=== PATIENT | male | born 1950 | race Caucasian/White ===

== ENCOUNTER 2021-10-21 11:14 | Emergency (ER) | payer MEDICARE, OTHER ==
[~2021-10-21] VITALS: Ht 190.5 cm; Wt 122.5 kg
[~2021-10-21 11:14] MED LIST: AMLODIPINE5 MG PO; ATENOLOL25 MG PO; PERCOCET 325 MG1 TA2 PO
[2021-10-21] MEDS ORDERED: FLOMAX0.4 MG PO (11:47)
[2021-10-21] MEDS ORDERED: HYDR12.5C PO (11:47)
[2021-10-21 12:25] LABS: BASO # 0.1 10*3/uL (0.0-0.1); BASO % 1.3 % (0.0-1.0); EOS # 0.4 10*3/uL (0.0-0.4); EOS % 4.7 % (1.0-4.0); HEMATOCRIT 50.4 % (42.0-52.0); LYMPH # 1.8 10*3/uL (1.3-4.4); LYMPH % 19.5 % (27.0-41.0); MEAN CORPUSCULAR HGB 31.6 pg (27.0-31.0); MEAN CORPUSCULAR HGB CONC 32.9 g/dl (33.0-37.0); MEAN PLATELET VOLUME 10.4 fl (9.6-12.3); MONO # 0.7 10*3/uL (0.1-1.0); MONO % 7.6 % (3.0-9.0); NEUT # 6.1 10*3/uL (2.3-7.9); NEUT % 66.7 % (47.0-73.0); PLATELET COUNT AUTOMATED 191 10*3/uL (130-400); RED BLOOD COUNT 5.25 10*6/uL (4.50-5.90); RED CELL DISTRI WIDTH 13.1 % (0-14.5); WHITE BLOOD COUNT 9.1 10*3/uL (4.8-10.8)
[2021-10-21 12:42] LABS: ALKALINE PHOSPHATASE 90 U/L (45-117); BUN 13 mg/dl (7-24); CHLORIDE 105 mmol/L (98-107); CREATININE 1.07 mg/dL (0.70-1.30); POTASSIUM 5.1 mmol/L (3.5-5.1); SGOT/AST 54 IU/L (3-35); SGPT/ALT 85 U/L (12-78); SODIUM 137 mmol/L (136-145); TOTAL PROTEIN 8.2 gm/dL (6.4-8.2)
[2021-10-21 12:52] LABS: ETHYL ALCOHOL < 3.0 mg/dl (<3)
[2021-10-23] MEDS ORDERED: PLAVIX75 M1 PO (16:21)
[2021-10-23] MEDS ORDERED: LIPITOR20 MG PO (16:21)
[2021-10-23] MEDS ORDERED: ASPIRIN ADULT L81 M2 PO (16:21)
== END 2021-10-21 15:45 | disposition left against medical advice (07) ==
LOC: ED 11:14
PROVIDERS: Physician Assistant
DX: R20.0 Anesthesia of skin (principal); R20.2 Paresthesia of skin; Z79.899 Other long term (current) drug therapy

== ENCOUNTER → 2021-12-23 | Outpatient (CLI) | payer MEDICARE, OTHER ==
[~2021-12-23] MED LIST changes: +ASPIRIN ADULT L81 M2 PO; +FLOMAX0.4 MG PO; +HYDR12.5C PO; +LIPITOR20 MG PO; +PLAVIX75 M1 PO
== END | disposition home or self-care (01) ==
LOC: CT 12-22 08:00
PROVIDERS: ATTEND Physician Assistant
DX: N40.0 Benign prostatic hyperplasia without lower urinary tract symptoms (principal); N20.0 Calculus of kidney; K92.1 Melena; K42.9 Umbilical hernia without obstruction or gangrene; K57.90 Diverticulosis of intestine, part unspecified, without perforation or abscess without bleeding

== ENCOUNTER → 2022-02-15 | Day surgery (SDC) | payer MEDICARE, OTHER ==
[~2022-02-15] VITALS: Ht 190.5 cm; Wt 120.2 kg
[2022-02-15 07:00] VITALS: BP 154/72
[2022-02-15 08:18] VITALS: BP 121/61
[2022-02-15 08:33] VITALS: BP 127/68
[2022-02-15 08:45] VITALS: BP 133/65
== END | disposition home or self-care (01) ==
LOC: SDC 02-11 09:30
PROVIDERS: ATTEND Surgery
DX: Z12.11 Encounter for screening for malignant neoplasm of colon (principal); D12.4 Benign neoplasm of descending colon; I10 Essential (primary) hypertension; E78.00 Pure hypercholesterolemia, unspecified; F17.210 Nicotine dependence, cigarettes, uncomplicated; Z86.73 Personal history of transient ischemic attack (TIA), and cerebral infarction without residual deficits; Z79.899 Other long term (current) drug therapy; Z98.890 Other specified postprocedural states

== ENCOUNTER → 2022-02-17 | Outpatient (CLI) | payer MEDICARE, OTHER | END | disposition home or self-care (01) | LOC: LAB 00:37 → CT 08:00 → LAB 08:00 | PROVIDERS: ATTEND Surgery | DX: K62.89 Other specified diseases of anus and rectum (principal); N40.0 Benign prostatic hyperplasia without lower urinary tract symptoms; K40.90 Unilateral inguinal hernia, without obstruction or gangrene, not specified as recurrent; N20.0 Calculus of kidney; N28.1 Cyst of kidney, acquired; D01.2 Carcinoma in situ of rectum ==

== ENCOUNTER → 2022-03-12 | Outpatient (CLI) | payer MEDICARE, OTHER ==
[2022-03-12 09:00] LABS: CREATININE 1.19 mg/dL (0.70-1.30)
== END | disposition home or self-care (01) ==
LOC: LAB 08:28
PROVIDERS: Radiology Diagnostic Radiology; ATTEND Surgery
DX: C18.9 Malignant neoplasm of colon, unspecified (principal); Z79.899 Other long term (current) drug therapy; Z79.82 Long term (current) use of aspirin; N40.0 Benign prostatic hyperplasia without lower urinary tract symptoms; Z12.11 Encounter for screening for malignant neoplasm of colon; K76.0 Fatty (change of) liver, not elsewhere classified

== ENCOUNTER → 2022-03-19 | Day surgery (SDC) | payer MEDICARE, OTHER ==
[2022-03-16 15:19] LABS: BASO # 0.1 10*3/uL (0.0-0.1); BASO % 1.2 % (0.0-1.0); EOS # 0.6 10*3/uL (0.0-0.4); EOS % 5.3 % (1.0-4.0); HEMATOCRIT 47.3 % (42.0-52.0); LYMPH # 2.2 10*3/uL (1.3-4.4); LYMPH % 18.9 % (27.0-41.0); MEAN CELL VOLUME 95.2 fl (80.0-94.0); MEAN CORPUSCULAR HGB 31.8 pg (27.0-31.0); MEAN CORPUSCULAR HGB CONC 33.4 g/dl (33.0-37.0); MEAN PLATELET VOLUME 11.1 fl (9.6-12.3); MONO # 1.1 10*3/uL (0.1-1.0); MONO % 9.3 % (3.0-9.0); NEUT # 7.5 10*3/uL (2.3-7.9); PLATELET COUNT AUTOMATED 204 10*3/uL (130-400); RED BLOOD COUNT 4.97 10*6/uL (4.50-5.90); RED CELL DISTRI WIDTH 13.2 % (0-14.5); WHITE BLOOD COUNT 11.5 10*3/uL (4.8-10.8)
[2022-03-16 15:30] LABS: BUN 21 mg/dl (7-24); CHLORIDE 106 mmol/L (98-107); CREATININE 1.05 mg/dL (0.70-1.30); SODIUM 140 mmol/L (136-145)
[~2022-03-19] VITALS: Ht 190.5 cm; Wt 120.2 kg
== END | disposition home or self-care (01) ==
LOC: SDC 03-16 13:15
PROVIDERS: ATTEND Surgery
DX: Z01.818 Encounter for other preprocedural examination (principal); I10 Essential (primary) hypertension; E78.5 Hyperlipidemia, unspecified; Z86.73 Personal history of transient ischemic attack (TIA), and cerebral infarction without residual deficits

== ENCOUNTER → 2022-04-19 | Day surgery (SDC) | payer MEDICARE, OTHER ==
[~2022-04-19] VITALS: Ht 187.9 cm; Wt 117.9 kg
[~2022-04-19] MED LIST changes: +PERCOCET 5-3251 EACH PO
[2022-04-19 10:20] VITALS: BP 154/72
[2022-04-19 12:46] VITALS: BP 116/60
[2022-04-19 13:01] VITALS: BP 128/62
== END | disposition home or self-care (01) ==
LOC: SDC 04-15 14:45
PROVIDERS: ATTEND Surgery
DX: C18.9 Malignant neoplasm of colon, unspecified (principal); I87.2 Venous insufficiency (chronic) (peripheral); I10 Essential (primary) hypertension; E78.5 Hyperlipidemia, unspecified; Z86.73 Personal history of transient ischemic attack (TIA), and cerebral infarction without residual deficits

== ENCOUNTER 2022-09-20 09:00 | Emergency (ER) | payer MEDICARE, OTHER ==
[~2022-09-20] VITALS: Ht 190.5 cm; Wt 93.0 kg
[2022-09-20 09:51] LABS: HEMATOCRIT 40.3 % (42.0-52.0); MEAN CELL VOLUME 99.8 fl (80.0-94.0); MEAN CORPUSCULAR HGB 34.7 pg (27.0-31.0); MEAN CORPUSCULAR HGB CONC 34.7 g/dl (33.0-37.0); MEAN PLATELET VOLUME 11.9 fl (9.6-12.3); PLATELET COUNT AUTOMATED 51 10*3/uL (130-400); RED BLOOD COUNT 4.04 10*6/uL (4.50-5.90); RED CELL DISTRI WIDTH 16.9 % (0-14.5)
[2022-09-20 09:58] LABS: ALKALINE PHOSPHATASE 109 U/L (46-116); BUN 22 mg/dl (9-23); CHLORIDE 104 mmol/L (98-107); LIPASE 24 U/L (12-53); POTASSIUM 3.7 mmol/L (3.4-5.1); SGPT/ALT 23 U/L (10-49); TOTAL PROTEIN 4.8 gm/dL (6.0-8.0)
[2022-09-20 10:16] LABS: MANUAL DIFF REFLEX YES
[2022-09-20 10:21] LABS: ATYPICAL LYMPHS 2 % (0-0); BASOPHILS 1 % (0-1); TOTAL CELLS COUNTED 100 #CELLS
[2022-09-20 10:22] LABS: OVALOCYTES FEW; PLATELET SUFFICIENCY LOW (NORMAL); POLYCHROMASIA SLIGHT; SCHISTOCYTES FEW
[2022-09-20 10:24] LABS: WHITE BLOOD COUNT 1.3 10*3/uL (4.8-10.8)
[2022-09-20] MEDS ORDERED: PROTONIX40 MG PO (10:46)
== END 2022-09-20 11:12 | disposition home or self-care (01) ==
LOC: ED 09:00
PROVIDERS: Internal Medicine
DX: R06.6 Hiccough (principal); I10 Essential (primary) hypertension; E78.5 Hyperlipidemia, unspecified; D70.9 Neutropenia, unspecified; Z86.73 Personal history of transient ischemic attack (TIA), and cerebral infarction without residual deficits; Z90.89 Acquired absence of other organs; Z98.890 Other specified postprocedural states; F17.200 Nicotine dependence, unspecified, uncomplicated

== ENCOUNTER → 2023-04-01 | Outpatient (CLI) | payer MEDICARE, OTHER ==
[~2023-04-01] MED LIST changes: +PROTONIX40 MG PO
== END | disposition home or self-care (01) ==
LOC: CARD 00:35
PROVIDERS: ATTEND Internal Medicine Cardiovascular Disease
DX: Z01.810 Encounter for preprocedural cardiovascular examination (principal); Z86.73 Personal history of transient ischemic attack (TIA), and cerebral infarction without residual deficits; F17.210 Nicotine dependence, cigarettes, uncomplicated; F17.200 Nicotine dependence, unspecified, uncomplicated; I44.7 Left bundle-branch block, unspecified; I44.0 Atrioventricular block, first degree

== ENCOUNTER → 2023-11-14 | Outpatient (CLI) | payer MEDICARE, OTHER ==
[~2023-11-14] MED LIST changes: +IOHEXOL 300 MG/ML 100 ML VIAL IV ONE
== END | disposition home or self-care (01) ==
LOC: CT 01:06
PROVIDERS: ATTEND Internal Medicine Hematology & Oncology
DX: N40.0 Benign prostatic hyperplasia without lower urinary tract symptoms (principal); C20 Malignant neoplasm of rectum; K80.20 Calculus of gallbladder without cholecystitis without obstruction; K40.90 Unilateral inguinal hernia, without obstruction or gangrene, not specified as recurrent

== ENCOUNTER → 2024-05-29 | Outpatient (CLI) | payer MEDICARE, OTHER | END | disposition home or self-care (01) | LOC: CT 01:30 | PROVIDERS: ATTEND Internal Medicine Hematology & Oncology | DX: K76.0 Fatty (change of) liver, not elsewhere classified (principal); N28.1 Cyst of kidney, acquired; K40.90 Unilateral inguinal hernia, without obstruction or gangrene, not specified as recurrent; K80.20 Calculus of gallbladder without cholecystitis without obstruction; N40.0 Benign prostatic hyperplasia without lower urinary tract symptoms; C20 Malignant neoplasm of rectum; R11.0 Nausea ==

== ENCOUNTER → 2024-11-20 | Outpatient (CLI) | payer MEDICARE, OTHER ==
[~2024-11-20] MED LIST changes: +CYPROHEPTADINE H4 M1 PO; +GABAPENTIN100 M2 PO; -IOHEXOL 300 MG/ML 100 ML VIAL IV ONE; +NORVASC10 MG PO
[2024-11-20 12:28] LABS: TOTAL PROTEIN 7.1 gm/dL (6.0-8.0)
== END | disposition home or self-care (01) ==
LOC: LAB 11:18
PROVIDERS: ATTEND Physician Assistant
DX: I10 Essential (primary) hypertension (principal); C18.9 Malignant neoplasm of colon, unspecified; I63.9 Cerebral infarction, unspecified; K81.0 Acute cholecystitis

== ENCOUNTER → 2024-12-12 | Outpatient (CLI) | payer MEDICARE, OTHER ==
[~2024-12-12] MED LIST changes: +IOHEXOL 300 MG/ML 100 ML VIAL IV ONE; +IOHEXOL 300 MG/ML 100 ML VIAL ONE
== END | disposition home or self-care (01) ==
LOC: CT 00:14
PROVIDERS: ATTEND Nurse Practitioner Primary Care
DX: C20 Malignant neoplasm of rectum (principal); N40.0 Benign prostatic hyperplasia without lower urinary tract symptoms; N28.1 Cyst of kidney, acquired; R11.0 Nausea; I77.819 Aortic ectasia, unspecified site; Z90.49 Acquired absence of other specified parts of digestive tract